=== PATIENT | male | born 1965 ===

== ENCOUNTER 2018-07-31 18:15 | Emergency (ER) | payer SELFPAY ==
[2018-07-31 18:40] VITALS: RESP 18
[2018-07-31 19:37] VITALS: BMI 31.3
--- NOTE | 2018-07-31 20:33 | ED PDOC ---
Arrival/HPI - General Historian: Patient - History of Present Illness Narrative History of Present Illness (Text): 53 year old male who presents to the Emergency Department stating for the last 2.5 weeks he has been drinking alcohol every day. Patient states he does not know why he has been drinking everyday, states he feel depressed and "doesn't feel right in the head." Patient denies any suicidal ideation, homicidal ideation, hallucinations, or any other complaints. Time/Duration: Other (2.5 weeks) Symptom Onset: Gradual Symptom Course: Unchanged Activities at Onset: Light <Ines White PA-C - Last Filed: 08/01/18 01:20> <Mateus Flanagan - Last Filed: 08/01/18 06:44> - General Chief Complaint: Alcohol Ingestion Time Seen by Provider: 07/31/18 18:36 Past Medical History - Provider Review Nursing Documentation Reviewed: Yes - Psychiatric Hx Substance Use: No (DENIES) - Anesthesia Hx Anesthesia: No <Ines White PA-C - Last Filed: 08/01/18 01:20> Family/Social History - Physician Review Nursing Documentation Reviewed: Yes Family/Social History: Unknown Family HX Smoking Status: Current Some Days Smoker Hx Alcohol Use: Yes Frequency of alcohol use: Daily Hx Substance Use: No (DENIES) <Ines White PA-C - Last Filed: 08/01/18 01:20> Allergies/Home Meds <Ines White PA-C - Last Filed: 08/01/18 01:20> <Mateus Flanagan - Last Filed: 08/01/18 06:44> Allergies/Adverse Reactions: Allergies No Known Allergies Allergy (Verified 07/31/18 19:37) Home Medications: Home Meds Medication Instructions Recorded Confirmed RX: No Known Home Med 07/31/18 07/31/18 Review of Systems - Physician Review All systems were reviewed & negative as marked: Yes - Review of Systems Constitutional: Normal. absent: Fevers Eyes: Normal ENT: Normal Respiratory: Normal. absent: SOB, Cough Cardiovascular: Normal. absent: Chest Pain Gastrointestinal: Normal. absent: Abdominal Pain, Diarrhea, Nausea, Vomiting Genitourinary Male: Normal. absent: Dysuria, Frequency, Hematuria, Urinary Output Changes Musculoskeletal: Normal. absent: Back Pain, Neck Pain Skin: Normal. absent: Rash Neurological: Normal. absent: Headache, Dizziness Endocrine: Normal Hemo/Lymphatic: Normal Psychiatric: Depression <Ines White PA-C - Last Filed: 08/01/18 01:20> Physical Exam Vital Signs Reviewed: Yes Vital Signs Temp Pulse Resp BP Pulse Ox 07/31/18 18:16 97.7 F 71 18 125/78 96 Temperature: Afebrile Blood Pressure: Normal Pulse: Regular Respiratory Rate: Normal Appearance: Positive for: Well-Appearing, Comfortable Pain Distress: None Mental Status: Positive for: other (Inebriated) - Systems Exam Head: Present: Atraumatic, Normocephalic Pupils: Present: PERRL Extroacular Muscles: Present: EOMI Conjunctiva: Present: Normal Mouth: Present: Moist Mucous Membranes Neck: Present: Normal Range of Motion Respiratory/Chest: Present: Clear to Auscultation, Good Air Exchange. No: Respiratory Distress, Accessory Muscle Use Cardiovascular: Present: Regular Rate and Rhythm, Normal S1, S2. No: Murmurs Abdomen: No: Tenderness, Distention, Peritoneal Signs Back: Present: Normal Inspection Upper Extremity: Present: Normal Inspection. No: Cyanosis, Edema Lower Extremity: Present: Normal Inspection. No: Edema Neurological: Present: GCS=15, CN II-XII Intact, Speech Normal Skin: Present: Warm, Dry, Normal Color. No: Rashes Psychiatric: Present: Alert, Intoxicated <Ines White PA-C - Last Filed: 08/01/18 01:20> Vital Signs Temp Pulse Resp BP Pulse Ox 08/01/18 01:48 98.2 F 88 18 115/63 100 07/31/18 21:20 98 F 73 18 130/80 97 07/31/18 18:16 97.7 F 71 18 125/78 96 <Mateus Flanagan - Last Filed: 08/01/18 06:44> Medical Decision Making ED Course and Treatment: Impression: 53 year old male presents for evaluation of depression, states he has been drinking alcohol everyday for 2.5 weeks. Plan: -- EKG -- Chest X-ray -- Labs, alcohol level -- UA, urine drug screen -- Reassess and disposition Progress Notes: 07/31/18 21:43 CXR : NAD, as read by XIANG EKG: NSR at 88 bpm, (-) acute ST changes, as read by XIANG. Labs reviewed : alcohol 287, LFTs mildly elevated, rest of labs wnl. Patient seen and evaluated by DEEPIKA, who recommends that the patient be re- screened after midnight when the patient is more sober for proper psych evaluation. Will continue to observe the patient until he is sober. - RAD Interpretation Radiology Orders: 07/31/18 20:06 CHEST PORTABLE [RAD] Stat <Ines White PA-C - Last Filed: 08/01/18 01:20> ED Course and Treatment: 08/01/18 02:56 Pt re-evaluated by DEEPIKA, who discussed case with psychiatrist education manager. Pt is psychiatrically cleared for discharge home. 08/01/18 05:11 On reassessment, pt is awake, alert, and in no acute distress. Clinically sober, ambulating with a steady gait. Pt stable for d/c. - Lab Interpretations Lab Results: 07/31/18 20:50 07/31/18 20:50 Lab Results 08/01/18 01:58: Urine Color Yellow, Urine Appearance Sl cloudy, Urine pH 6.0, Ur Specific [place] 1.015, Urine Protein 30 H, Urine Glucose (UA) Negative, Urine Ketones 15 H, Urine Blood Trace-intact H, Urine Nitrate Negative, Urine Bilirubin Negative, Urine Urobilinogen 1.0 H, Ur Leukocyte Esterase Trace H, Urine RBC 0 - 2, Urine WBC 1 - 3, Ur Epithelial Cells 0 - 2, Urine Bacteria Rare 07/31/18 20:50: Alcohol, Quantitative 287 H 07/31/18 20:50: Sodium 141, Potassium 3.8, Chloride 100, Carbon Dioxide 23, Anion Gap 21 H, BUN 11, Creatinine 0.7 L, Est GFR ( Amer) > 60, Est GFR (Non-Af Amer) > 60, Random Glucose 99, Calcium 8.7, Magnesium 2.0, Total Bilirubin 0.8, AST 137 H, ALT 131 H, Alkaline Phosphatase 119, Total Protein 8.4 H, Albumin 5.1 H, Globulin 3.3, Albumin/Globulin Ratio 1.5 07/31/18 20:50: WBC 6.2, RBC 5.05, Hgb 15.7, Hct 45.8, MCV 90.7, MCH 31.1, MCHC 34.3, RDW 14.1, Plt Count 137, MPV 9.4, Gran % 54.4, Lymph % (Auto) 35.4 H, Emmet % (Auto) 8.3 H, Eos % (Auto) 1.6, Baso % (Auto) 0.3, Gran # 3.34, Lymph # (Auto) 2.2, Emmet # (Auto) 0.5, Eos # (Auto) 0.1, Baso # (Auto) 0.02 - RAD Interpretation Radiology Orders: 07/31/18 20:06 CHEST PORTABLE [RAD] Stat <Mateus Flanagan - Last Filed: 08/01/18 06:44> - PA / FAMILY SUPPORT SPECIALIST / Resident Statement LEÓN has reviewed & agrees with the documentation as recorded. - Scribe Statement The provider has reviewed the documentation as recorded by the Scribevangelina Redd All medical record entries made by the Scribe were at my direction and personally dictated by me. I have reviewed the chart and agree that the record accurately reflects my personal performance of the history, physical exam, medical decision making, and the department course for this patient. I have also personally directed, reviewed, and agree with the discharge instructions and disposition. <Ines White PA-C - Last Filed: 08/01/18 01:20> - PA / FAMILY SUPPORT SPECIALIST / Resident Statement LEÓN has reviewed & agrees with the documentation as recorded. LEÓN has examined the patient and agrees with the treatment plan. <Mateus Flanagan - Last Filed: 08/01/18 06:44> Disposition/Present on Arrival - Present on Arrival Any Indicators Present on Arrival: No History of DVT/PE: No History of Uncontrolled Diabetes: No Urinary Catheter: No History of Decub. Ulcer: No History Surgical Site Infection Following: None - Disposition Have Diagnosis and Disposition been Completed?: Yes <Ines White PA-C - Last Filed: 08/01/18 01:20> - Present on Arrival Any Indicators Present on Arrival: No - Disposition Have Diagnosis and Disposition been Completed?: Yes Disposition Time: 05:10 Patient Plan: Discharge <Mateus Flanagan - Last Filed: 08/01/18 06:44> - Disposition Diagnosis: Alcohol intoxication Disposition: HOME/ ROUTINE Patient Problems: Current Active Problems Problem Status Onset Alcohol intoxication Acute Condition: STABLE Discharge Instructions (ExitCare): Alcohol Abuse and Alcoholism (DC) Referrals: PCP,NO [Primary Care Provider] - Follow up with primary Alcoholics Anonymous [Outside] - Follow up with primary Forms: [employer] (Niuean)
[2018-07-31 20:53] LABS: BASO # 0.02 K/mm3 (0.0-2.0); BASO % 0.3 % (0.0-3.0); EOS # 0.1 (0.0-0.7); EOS % 1.6 % (1.5-5.0); GRAN # 3.34 (1.4-6.5); GRAN % 54.4 % (50.0-68.0); HEMOGLOBIN 15.7 g/dL (14.0-18.0); LYMPH # 2.2 (1.2-3.4); LYMPH % 35.4 % (22.0-35.0); MEAN CELL VOLUME 90.7 fl (80.0-105.0); MEAN CORPUSCULAR HEMOGLOBIN 31.1 pg (25.0-35.0); MEAN CORPUSCULAR HGB CONC 34.3 g/dl (31.0-37.0); MEAN PLATELET VOLUME 9.4 fl (7.0-11.0); MONO # 0.5 (0.1-0.6); MONO % 8.3 % (1.0-6.0); RBC 5.05 10^6/uL (3.5-6.1); RED CELL DISTRIBUTION WIDTH 14.1 % (11.5-14.5); WHITE BLOOD COUNT 6.2 10^3/ul (4.5-11.0)
[2018-07-31 21:06] LABS: ALB/GLOB RATIO 1.5 (1.1-1.8); ALBUMIN 5.1 g/dL (3.0-4.8); ALT/SGPT 131 U/L (7-56); AST/SGOT 137 U/L (17-59); BLOOD UREA NITROGEN 11 mg/dL (7-21); CALCIUM 8.7 mg/dL (8.4-10.5); GFR NON-AFRICAN AMERICAN > 60
[2018-08-01 01:49] VITALS: O2SAT 100
[2018-08-01 02:31] LABS: URINE BILIRUBIN NEGATIVE (NEGATIVE); URINE BLOOD TRACE-INTACT (NEGATIVE); URINE GLUCOSE (UA) NEGATIVE (NEGATIVE); URINE LEUKOCYTE ESTERASE TRACE Leu/uL (NEGATIVE); URINE PROTEIN 30 mg/dL (<30 mg/dL)
[2018-08-01 02:44] LABS: URINE APPEARANCE SL CLOUDY (CLEAR); URINE COLOR YELLOW (YELLOW)
[2018-08-01 02:46] LABS: URINE BACTERIA RARE (NEG); URINE EPITHELIAL CELLS 0 - 2 /hpf (0-5); URINE RBC 0 - 2 /hpf (0-2)
[2018-08-01 03:21] LABS: BARBITURATES, UR NEGATIVE (NEGATIVE); BENZODIAZEPINES, UR NEGATIVE (NEGATIVE); OPIATES, UR NEGATIVE (NEGATIVE); PHENCYCLIDINE, UR NEGATIVE (NEGATIVE)
[2018-08-01 05:17] VITALS: BP 128/77; PULSE 80; TEMP 98
--- NOTE | 2018-08-01 09:01 | RAD ---
Date of service: 07/31/2018 HISTORY: psych eval COMPARISON: No prior. FINDINGS: LUNGS: No active pulmonary disease. PLEURA: No significant pleural effusion identified, no pneumothorax apparent. CARDIOVASCULAR: No radiographic findings to suggest acute or significant cardiovascular disease. OSSEOUS STRUCTURES: No significant abnormalities. VISUALIZED UPPER ABDOMEN: Normal. OTHER FINDINGS: None. IMPRESSION: No active disease.
--- NOTE | 2018-08-01 16:40 | CARD ---
APPROVED REPORT Date of service: 07/31/2018 EKG Measurement Heart [id number] <Conclusion> Normal sinus rhythm Possible Inferior infarct, age undetermined Abnormal ECG
== END 2018-08-01 05:17 | disposition home or self-care (01) ==
LOC: ED 18:15
DX: F10.129 Alcohol abuse with intoxication, unspecified (principal); Y90.8 Blood alcohol level of 240 mg/100 ml or more
CPT/HCPCS: 71045; 80053; 81001; 83735; 85025; 87086; 90791; 93005; 99284; G0480